=== PATIENT | male | born 1960 | race Caucasian/White ===

== ENCOUNTER 2017-09-30 18:45 | Inpatient (IN) ==
[2017-09-30] MEDS ORDERED: Aspirin 81 MG TAB.CHEW PO ONE (18:54)
[2017-09-30] MEDS ORDERED: *HR* Ticagrelor 90 MG TABLET PO ONE (18:58)
[2017-09-30] MEDS ORDERED: *HR* Heparin 5,000 UNIT/ML VIAL IVP PRN ×4 (19:07)
[2017-09-30] MEDS ORDERED: *HR* Heparin 5,000 UNIT/ML VIAL IVP ONE ×2 (19:07)
[2017-09-30 19:09] LABS: Basophils # 0.1 K/mcL (0.0-0.2); Basophils % 0.8 %; Eosinophils # 0.3 K/mcL (0.0-0.6); Hematocrit 45.1 % (37.5-50.1); Hemoglobin 15.6 g/dL (12.9-16.9); Immature Granulocytes % 0.2 % (0-4); Lymphocytes # 4.5 K/mcL (0.6-4.6); Lymphocytes % 45.2 %; Mean Corpuscular HGB Conc 34.6 g/dL (31.6-35.5); Mean Corpuscular Volume 89.7 fL (83.0-100.0); Mean Platelet Volume 9.1 fL (9.4-12.4); Monocytes # 0.9 K/mcL (0.0-1.3); Monocytes % 8.8 %; Neutrophils # 4.2 K/mcL (1.6-8.9); Platelet Count 261 K/mcL (140-400); Red Blood Count 5.03 M/mcL (4.19-5.50); Red Cell Distribution Width 12.7 % (11.5-14.5)
[2017-09-30] MEDS ORDERED: Nitroglycerin 0.4 MG TAB.SUBL SL PRN (19:10)
[2017-09-30] MEDS: Nitroglycerin 25 MG/250 ML INFUS..BTL IVC SCH ×2 (19:10→19:29)
[2017-09-30] MEDS ORDERED: 0.9 % Sodium Chloride 1,000 ML IVC ONE (19:11)
--- NOTE | 2017-09-30 19:11 | Emergency Department Note ---
Disposition Clinical Impression: ST elevation myocardial infarction (STEMI) Qualifiers: Involved coronary artery: unspecified coronary artery Qualified Code(s): I21.3 - ST elevation (STEMI) myocardial infarction of unspecified site Disposition: Admitted As Inpatient Condition: Fair Time of Disposition: 19:44 General Adult HPI - General Chief complaint: ED Chest Pain Stated complaint: C/P Time Seen by Provider: 09/30/17 18:51 Source: patient Mode of arrival: EMS Limitations: no limitations Nursing Notes Reviewed: Yes Vital Signs Reviewed: Yes - History of Present Illness HPI Narrative: Patient is a 56-year-old male with a past medical history of 6 cardiac stents presenting presents to the responded with complaint of chest pain is consistent with his prior heart attacks in the past. He states the symptoms started at 17: 00. Positive for nausea, SOB, and diaphoresis. Patient's EKG initially showed ST elevation inferior leads and lateral leads including V4 through V6 with reciprocal changes in lead aVL. STEMI alert was paged. Pain Scale: 7 - Related Data Home Medications Medication Instructions Recorded Confirmed Atorvastatin [Lipitor] 40 mg PO HS 09/30/17 09/30/17 Clopidogrel [Plavix] 75 mg PO DAILY 09/30/17 09/30/17 Metoprolol [Lopressor] 25 mg PO BID 09/30/17 09/30/17 Allergies Allergy/AdvReac Type Severity Reaction Status Date / Time No Known Allergies Allergy Verified 09/30/17 19:02 All systems ED: reviewed and negative except as stated. Review of Systems: As Per HPI Constitutional: Reports: other (diaphoresis). Denies: fever, chills Cardiovascular: Reports: chest pain Past Medical History - Past Medical History Attestation: Yes The following information was validated with the patient. Medical history: Reports: myocardial infarction Psychiatric history: Reports: no psych history - Social History Smoking Status: Never smoker Smokeless Tobacco Status: No Alcohol use: Reports: none Drug use: Reports: none Physical Exam CONSTITUTIONAL: ill-appearing; well-nourished; A&O X 3, vital signs are stable. HEAD: Normocephalic; atraumatic EYES: PERRL, no scleral icterus NOSE: The nose is normal in appearance without rhinorrhea NECK: No JVD or distended neck veins RESP: Normal chest excursion with respiration; breath sounds clear and equal bilaterally; no wheezes, rhonchi, or rales CARD: Regular rhythm, without murmurs, rub or gallop ABD: Non-distended; non-tender, soft, without rigidity, rebound or guarding,no pulsatile mass CHEST: No pain with palpation SKIN: Normal for age and race; warm and dry without diaphoresis ; no apparent lesions EXTREMITIES: Pulses are 2 plus and equal times 4 extremities, no peripheral edema or calf muscle pain - General Limitations: no limitations General appearance: alert Course Course Narrative: Dr. Crocker return the call at 19:10 discussed patient has signs of STEMI on EKG discussed that we have followed the protocol given the patient the pertinent medications will get him ready for catheter lab. STEMI alert was paged on patient's arrival prior to entering room. Patient was given sublingual nitroglycerin, his blood pressure was stable throughout the duration of the sublingual tablet. Patient had no change in his pain with the sublingual tablet. Plan was to start the patient on a low-dose nitroglycerin drip and titrated up to clinical improvement. Patient was also initiated with brillinta and a bolus of low-dose heparin. The patient was accepted to the catheter lab and his case was discussed with Dr. Crocker who is the receiving physician. Vital Signs Temperature 97.5 F L 09/30/17 18:53 Pulse Rate 87 09/30/17 18:53 Respiratory Rate 26 09/30/17 18:53 Blood Pressure 140/95 09/30/17 18:53 O2 Sat by Pulse Oximetry 100 09/30/17 18:53 Temperature 97.5 F L 09/30/17 18:53 Pulse Rate 77 09/30/17 19:25 Respiratory Rate 18 09/30/17 19:33 Blood Pressure 136/89 09/30/17 19:33 O2 Sat by Pulse Oximetry 100 09/30/17 19:19 Oxygen Delivery Oxygen Delivery Room Air Medical Decision Making - Medical Records Medical records reviewed: Yes I reviewed the patient's medical records. - Lab Data Lab results reviewed: Yes I reviewed the patient's lab results. Result diagrams: 09/30/17 18:58 09/30/17 18:58 Lab Results 09/30/17 09/30/17 09/30/17 Range/Units 18:58 18:58 18:58 WBC 10.0 (4.3-11.1) K/mcL RBC 5.03 (4.19-5.50) M/mcL Hgb 15.6 (12.9-16.9) g/dL Hct 45.1 (37.5-50.1) % MCV 89.7 (83.0-100.0) fL MCH 31.0 (28.0-33.3) pg MCHC 34.6 (31.6-35.5) g/dL RDW 12.7 (11.5-14.5) % Plt Count 261 (140-400) K/mcL MPV 9.1 L (9.4-12.4) fL Immature Gran % 0.2 (0-4) % Seg Neutrophils % 42.0 % Lymphocytes % 45.2 % Monocytes % 8.8 % Eosinophils % 3.0 % Basophils % 0.8 % Neutrophils # 4.2 (1.6-8.9) K/mcL Lymphocytes # 4.5 (0.6-4.6) K/mcL Monocytes # 0.9 (0.0-1.3) K/mcL Eosinophils # 0.3 (0.0-0.6) K/mcL Basophils # 0.1 (0.0-0.2) K/mcL PT 11.0 (9.4-12.1) Seconds INR 1.0 APTT 26.8 (26.0-36.0) Seconds Sodium 138 (136-145) mEq/L Potassium 3.4 L (3.5-5.1) mEq/L Chloride 103 (98-107) mEq/L Carbon Dioxide 23 (23-29) mEq/L BUN 17 (6-20) mg/dL Creatinine 1.07 (0.70-1.30) mg/dL Est GFR ( Amer) > 60 (> 60) Est GFR (Non-Af Amer) > 60 (> 60) BUN/Creatinine Ratio 16 (6-26) Glucose 151 H (70-105) mg/dL POC Glucose (58-89) Calculated Osmolality 290 (280-300) Calcium 9.6 (8.6-10.3) mg/dL Magnesium 1.9 (1.6-2.6) mg/dL Total Bilirubin 0.7 (0.3-1.0) mg/dL AST 19 (13-39) Units/L ALT 28 (7-52) Units/L Alkaline Phosphatase 70 (34-104) Units/L Troponin I (< 0.04) ng/mL Serum Total Protein 8.0 (6.4-8.9) g/dL Albumin 4.7 (3.5-5.7) g/dL Globulin 3.3 (2.4-3.5) g/dL Albumin/Globulin Ratio 1.4 (1.1-2.2) 09/30/17 09/30/17 Range/Units 18:58 19:12 WBC (4.3-11.1) K/mcL RBC (4.19-5.50) M/mcL Hgb (12.9-16.9) g/dL Hct (37.5-50.1) % MCV (83.0-100.0) fL MCH (28.0-33.3) pg MCHC (31.6-35.5) g/dL RDW (11.5-14.5) % Plt Count (140-400) K/mcL MPV (9.4-12.4) fL Immature Gran % (0-4) % Seg Neutrophils % % Lymphocytes % % Monocytes % % Eosinophils % % Basophils % % Neutrophils # (1.6-8.9) K/mcL Lymphocytes # (0.6-4.6) K/mcL Monocytes # (0.0-1.3) K/mcL Eosinophils # (0.0-0.6) K/mcL Basophils # (0.0-0.2) K/mcL PT (9.4-12.1) Seconds INR APTT (26.0-36.0) Seconds Sodium (136-145) mEq/L Potassium (3.5-5.1) mEq/L Chloride (98-107) mEq/L Carbon Dioxide (23-29) mEq/L BUN (6-20) mg/dL Creatinine (0.70-1.30) mg/dL Est GFR ( Amer) (> 60) Est GFR (Non-Af Amer) (> 60) BUN/Creatinine Ratio (6-26) Glucose (70-105) mg/dL POC Glucose 145 H (58-89) Calculated Osmolality (280-300) Calcium (8.6-10.3) mg/dL Magnesium (1.6-2.6) mg/dL Total Bilirubin (0.3-1.0) mg/dL AST (13-39) Units/L ALT (7-52) Units/L Alkaline Phosphatase (34-104) Units/L Troponin I < 0.03 (< 0.04) ng/mL Serum Total Protein (6.4-8.9) g/dL Albumin (3.5-5.7) g/dL Globulin (2.4-3.5) g/dL Albumin/Globulin Ratio (1.1-2.2) - Radiology Data Radiology results reviewed: Yes I reviewed the patient's radiology results. Chest X-Ray 09/30/17 18:54 IMPRESSION: Pulmonary vascular congestion. Mild degree of patchy left perihilar and right infrahilar airspace opacity which could reflect mild pulmonary edema, multifocal infiltrates and/or atelectasis. There may also be a trace left pleural effusion. Cardiomegaly. D/ / 09/30/2017 19:47:15 Jean Carlos Cantor MD / jesenia Interpreting Provider: Jean Carlos Cantor MD - EKG Data EKG #1 EKG attestation: Yes I reviewed and interpreted this EKG. EKG results narrative: The patient's EKG done at 18:50 shows sinus rhythm at a rate of 66 bpm. The patient has ST elevations in leads II, III, aVF, V4-V5 and has reciprocal ST depressions in aVL. Critical Care Time Critical Care Time: Yes Total Critical Care Time: 35 Attestation: Critical care performed: Time is exclusive of separately billable procedures. Time includes: direct patient care, patient reassessment, coordination of patient care, interpretation of data (laboratory data, radiology data, and respiratory data), review of patient's medical records, medical consultation and documentation of patient care. Procedures included in critical care time: Procedures excluded from critical care time: Attestation Statement - Attestation Attestation: I, Javy Navarro DO, examined this patient [id number] and my medical decision-making was reviewed with Dr. Jorge Pimentel, Resident Physician. I agree with the documented findings, disposition and treatment plan as described except to the extent set forth below. Please see my progress notes for details. 56-year-old male presented emergency room just prior to my arrival to shift. Patient presented with active chest pain diaphoresis and uncomfortable presentation. His had similar issues in the past myocardial infarction. EKG was collected showing what appears to be ST segment elevations in 23 aVF and lateral precordial leads V4 V5 and V6. Patient's vital signs were unstable to the course of the evaluation in the emergency room. Stimulator was contacted and called. Dr. Crocker was contacted directly by myself discussed case. Agree with activation to the catheterization lab at this time. Patient provided with heparin and [place] today here in the emergency room. Nitroglycerin drip was started secondary to inability to utilize the nitroglycerin tablets at this point. Patient is resting comfortably in the bed blood pressure is 150/90 systolic throughout the treatment course. Heart rate was in the 60s. Patient no acute signs of mental status change or deviation. We will continue to monitor in the emergency room until transportation 5 is completed. Physical exam is otherwise unremarkable. Lungs are clear heart is regular abdomen is soft. No pulsatile lesions on exam no neurologic deficits. Patient stable and good medical condition with what appears to be active myocardial infarction at the time of transfer to the catheterization lab less than 60 minutes after arrival. Medical intervention in place prior to transporting. See detailed documentation of physical exam, medical intervention, medical decision-making and disposition in the resident physician's note
[2017-09-30 19:13] LABS: Activated Partial Thrombo Time 26.8 Seconds (26.0-36.0)
[2017-09-30] MEDS ORDERED: Heparin 25,000 UNIT/500 ML D5W 25,000 UNIT/500 ML BAG IVC SCH ×2 (19:15)
[2017-09-30] MEDS ORDERED: Nitroglycerin 0.4 MG TAB.SUBL SL ONE (19:16)
[2017-09-30 19:18] LABS: Alanine Aminotransferase 28 Units/L (7-52); Albumin 4.7 g/dL (3.5-5.7); Albumin/Globulin Ratio 1.4 (1.1-2.2); Alkaline Phosphatase 70 Units/L (34-104); Aspartate Amino Transferase 19 Units/L (13-39); BUN/Creatinine Ratio 16 (6-26); Bilirubin,Total 0.7 mg/dL (0.3-1.0); Blood Urea Nitrogen 17 mg/dL (6-20); Calcium 9.6 mg/dL (8.6-10.3); Carbon Dioxide 23 mEq/L (23-29); Chloride 103 mEq/L (98-107); Globulin 3.3 g/dL (2.4-3.5); Glucose 151 mg/dL (70-105); Magnesium 1.9 mg/dL (1.6-2.6); Osmolality,Calculated 290 (280-300); Potassium 3.4 mEq/L (3.5-5.1); Sodium 138 mEq/L (136-145); eGFR For African Americans > 60 (> 60); eGFR For Non-African Americans > 60 (> 60)
[2017-09-30] MEDS ORDERED: Nitroglycerin 1,000 MCG/10 ML VIAL IV ONE (19:18)
[2017-09-30] MEDS ORDERED: 0.9 % Sodium Chloride 1,000 ML ONE ×2 (19:18→19:38)
[2017-09-30] MEDS ORDERED: Heparin 1,000 UNITS/500 mL 500 ML ONE (19:18)
[2017-09-30] MEDS ORDERED: *HR* Heparin 10,000 UNIT/10 ML VIAL ONE (19:18)
[2017-09-30] MEDS ORDERED: *HR* Atropine Sulfate 1 MG/10 ML SYRINGE ONE (19:37)
[2017-09-30] MEDS ORDERED: *HR* Midazolam HCl 2 MG/2 ML VIAL ONE (19:44)
--- NOTE | 2017-09-30 20:41 | Invasive Diagnostic Lab Proc ---
Name: Otilio March Date of Study: 09/30/2017 Date: 1960 Ht: 70.1in Medical Record#: [id number] Age: 56 Wt: 209.44lb Gender: Male BSA: 2.13 Order #: [id number] BMI: 29.98 Physicians Procedure Physician: Praful Crocker DO Referring MD: Referring MD: Staff Name Position Time In Shani Loyola RT (R) Scrub 07:43 PM Yomaira Doe RN Utility Repairer 07:43 PM Fifi Murillo RN Monitor 07:44 PM Indications Indication STEMI Procedures Performed Procedure PRQ CARD REVASC [place] 1 VSL Pre-Procedure Checklist Informed consent is complete signed and on chart. H&P is on chart. ID band is on and ID verified with patient. Patient NPO for procedure The procedure was described for the patient and questions were answered. ECG is on chart. Plan of Care Patient will tolerate the procedure without complications. Adequate level of comfort will be maintained. Hemodynamics will remain stable Patient will recover from procedure without complications. Respiratory function will be maintained. Cardiac rhythm will remain stable. Patient temperature will be maintained. Patient and/or family have verbalized understanding of the procedure. Patient Education Intravenous Access Time IV Size Location DC'd Fluid/Drip Rate Units RN 20g 1 1/4" Patent On Arrival Rt Antecubital 0.9NaCl 18g 1 1/4" Patent On Arrival Lt Antecubital Allergies No Known Allergies Vital Signs Time BP (mmHg) HR (bpm) O2 Sat. RR (bpm) LOC 07:48 PM / % 4 = Oriented but drowsy 08:06 PM / % 4 = Oriented but drowsy 07:42 PM 131 / 79 71 97 % 20 07:47 PM 131 / 78 79 99 % 22 07:52 PM 125 / 75 72 99 % 27 07:57 PM 124 / 80 74 100 % 24 08:00 PM 109 / 64 67 82 % 22 08:02 PM 119 / 63 66 99 % 20 08:07 PM 115 / 65 71 93 % 22 08:10 PM 94 / 51 70 97 % 14 08:12 PM 107 / 65 75 95 % 20 08:17 PM 101 / 61 75 99 % 22 Procedural Medications Time Medication Dose Units Method Given By 07:44 PM Oxygen 2 L/min nasal cannula Yomaira Doe RN 07:44 PM Versed 1 mg Intravenous Yomaira Doe RN 07:47 PM Lidocaine 2% 10 ml Subcutaneous Praful Crocker DO 07:54 PM Heparin 2000 units Intravenous Yomaira Doe RN 07:59 PM Nitroglycerin 100 mcg Intracoronary Praful Crocker DO 08:01 PM Dopamine 5 mcg/kg/min Intravenous Yomaira Doe RN 08:10 PM Dopamine 7.5 mcg/kg/min Intravenous Yomaira Doe RN 08:20 PM Dopamine 5 mcg/kg/min Intravenous Yomaira Doe RN ASA Classification: CLASS II- Mild systemic disease (i.e. well-controlled diabetes, hypertension, asthma, cigarette smoking) Emergent Procedure: ASA score is assumed Chad Score Preprocedure Postprocedure Activity 2- Moves 4 extremities sustained head lift Activity 2- Moves 4 extremities sustained head lift Circulation 2- SBP +/= 20 points of pre-anesthetic level Circulation 2- SBP +/= 20 points of pre-anesthetic level Consciousness 2- Awake and alert oriented x 3 Consciousness 2- Awake and alert oriented x 3 O2 Saturation 2- Able to maintain O2 satruation of 92% on room air O2 Saturation 2- Able to maintain O2 satruation of 92% on room air Respiratory 2- Able to deep breathe and cough well Respiratory 2- Able to deep breathe and cough well Total Score 10 Total Score 10 Contrast Agent: Isovue Diagnostic Contrast: 140 ml Total Contrast: 140 ml Fluoro Dose: 791 mGy Procedure Log Time Note Enter By 07:37 PM Pt arrived to director of labor relations 2 at 19:37 [facility] 07:41 PM CathStat 07:41 PM Vitals capture started with the following parameters, Patient=Adult, Interval=5 min, Initial Llumwjct=348 mmHg, Deflation Rate=5 mmHg, Cuff placed on Left Arm 07:42 PM HR=71 bpm, RRGD=915/79 mmhg, SpO2=97.0 %, Resp=20 B/min, Comment=SR 07:43 PM Patient charges- Angio tray pack, Navilyst 3mm J, Pulse Oximetry and ACIST tubing and [facility] 07:43 PM ASA Class CLASS II- Mild systemic disease (i.e. well-controlled diabetes, hypertension, asthma, cigarette smoking) [facility] 07:43 PM Meet and greet completed [facility] 07:43 PM Sign in performed according to hospital policy. brie 07:43 PM Procedure start 19:43 [email or web address] 07:43 PM Shani Loyola RT (R) Position: Scrub Time in: 19:43 [email or web address] 07:43 PM Yomaira Doe RN Position: Utility Repairer Time in: 19:43 brie 07:44 PM Fifi Murillo RN Position: Monitor Time in: 19:44 brie 07:44 PM Time: 19:44 Oxygen on at 2 L/min per nasal cannula by Yomaira Doe RN 07:44 PM Time: 19:44 Versed 1 mg Intravenous Given by Yomaira Doe RN 07:46 PM Pressure channel 1 zeroed. 07:47 PM HR=79 bpm, GPLV=721/78 mmhg, SpO2=99.0 %, Resp=22 B/min, Comment=SR 07:48 PM Time: 19:47 10 ml Lidocaine 2% to right groin Subcutaneous Given by DO sunitha Solomon 07:48 PM Micro-Introducer Kit utilized for sheath placement 07:48 PM Recorded ECG: HR=79 Condition=Condition 1 07:48 PM Access obtained by percutaneous puncture. 6Fr 10cm Terumo [place] sheath placed in right Femoral artery. [id number] [facility] 07:48 PM Time: 19:48 Patient comfortable and pain free: No mm 07:49 PM Time: 19:48LOC: 4 = Oriented but drowsy kalli 07:49 PM 5Fr FL 4 catheter inserted over the wire [facility] PM Recorded Pressure: Ao, HR=79, Condition=Condition 1 (Aorta) Ao 122/71/93 07:50 PM LCA angiography performed in multiple views. abraham 07:51 PM Coronary Dominance: Left oummabraham 07:[address] [facility] 07:51 PM 5Fr FR 4 catheter inserted over the wire [facility] 07[facility]52 PM Recorded Pressure: LV, HR=80, Condition=Condition 1 (Left Ventricle) LV 123/66/121 07:52 PM HR=72 bpm, XVAU=897/75 mmhg, SpO2=99.0 %, Resp=27 B/min, Comment=SR 07:52 PM Catheter selectively placed in left ventricle 07:52 PM Recorded Pressure: LV, Ao, HR=75, Condition=Condition 1 (Left Ventricle) LV 121/8/117, (Aorta) Ao 118/64/89 07:53 PM Catheter removed 07:53 PM Bolus angiogram of left Ventricle complete: 10 ml hand injection 07:53 PM 6Fr JL4 [place]-Tip guide catheter was used to cannulate the PCI vessel successfully. reused? No 07:54 PM Time: 19:54 Heparin 2000 units Intravenous Given by Yomaira Doe RN brie 07:55 PM .014 Choice Extra Support 300cm guide wire across target lesion- successful. reused? No 07:56 PM Recorded Pressure: Ao, HR=78, Condition=Condition 1 (Aorta) Ao 109/64/84 07:57 PM 3.5mm x 24mm Synergy drug-eluting stent across target lesion- successful Lot #[id number] [facility] 07:57 PM HR=74 bpm, PETW=534/80 mmhg, XnQ7=429.0 %, Resp=24 B/min, Comment=SR 07:58 PM Stent deployed @ 16 tip for 18 seconds 07:59 PM Stent delivery system removed intact. 07:59 PM Time: 19:59 Nitroglycerin 100 mcg Intracoronary Given by Praful [facility] PM NIBP STAT measurement started. 08:00 PM HR=67 bpm, NWDX=979/64 mmhg, SpO2=82.0 %, Resp=22 B/min, Comment=SR 08:01 PM Time: 20:01 Dopamine 5 mcg/kg/min Intravenous Given by Yomaira Doe RN [facility] 08:01 PM Recorded Pressure: Ao, HR=69, Condition=Condition 1 (Aorta) Ao 93/62/76 08:02 PM HR=66 bpm, TMIF=517/63 mmhg, SpO2=99.0 %, Resp=20 B/min, Comment=SR 08:02 PM Lesion found in Mid Circumflex. Pre Stenosis: 90 Pre SRAVANI Flow: 3: Complete and Brisk Flow/Perfusion ouabraham 08:02 PM Circumflex, Obtuse Marginal, Left Posterior Descending, and Left Posterolateral Coronary Arteries with 90 % stenosis. [facility] 08:04 PM 3.5mm x 12mm Synergy drug-eluting stent across target lesion- successful Lot #[id number] [facility] 08:05 PM Stent deployed @ 16 tip for 16 seconds [facility] 08:06 PM Stent delivery system removed intact. [facility] 08:06 PM Time: 20:06 Patient comfortable and pain free: No [facility] 08:06 PM Time: 20:06LOC: 4 = Oriented but drowsy [facility] 08:07 PM Recorded Pressure: Ao, HR=68, Condition=Condition 1 (Aorta) Ao 94/61/76 08:07 PM HR=71 bpm, BKAC=046/65 mmhg, SpO2=93.0 %, Resp=22 B/min, Comment=SR 08:07 PM 4.0 mm x 20mm NC Emerge balloon across target lesion- successful. reused? No [facility] 08:09 PM Balloon inflated @ 12 tip for 33 seconds [facility] 08:09 PM NIBP STAT measurement started. 08:10 PM HR=70 bpm, NIBP=94/51 mmhg, SpO2=97.0 %, Resp=14 B/min, Comment=SR 08:11 PM Time: 20:10 Dopamine 7.5 mcg/kg/min Intravenous Given by Yomaira Doe RN Mejia pump [facility] 08:12 PM Balloon inflated @ 16 tip for 11 seconds [facility] 08:12 PM HR=75 bpm, OUKG=313/65 mmhg, SpO2=95.0 %, Resp=20 B/min, Comment=SR 08:13 PM Balloon catheter removed intact. [facility] 08:14 PM Guide wire removed intact. [facility] 08:14 PM Guide catheter removed intact. [facility] 08:15 PM Bolus angiogram of right Femoral complete: 2 ml/sec for a total of 4 mls [facility] PM Procedure completed at 20:16 [facility] 08:16 PM Sign out completed: Radiation Dose 791.3 mGy Fluoro Time: 4.4 Isovue 370 - 200ml contrast 120 ml given by Praful Crocker DO. Complications: NoneCardiac Rehab Consult needed: YesConfirmed administered medications: Yes [facility] 08:17 PM HR=75 bpm, CVOP=221/61 mmhg, SpO2=99.0 %, Resp=22 B/min, Comment=SR 08:17 PM Isovue 370 - 200ml,1 Bottle(s) used. tsoumm 08:17 PM Arterial sheath pulled, Mynx closure device used and was Successful [id number] S/N. oumm 08:18 PM Estimated Blood Loss: minimal tsoummers 08:18 PM Post ECG NSR tsoummers 08:18 PM Post Blood [facility] 101[facility]61 [facility] 08:[facility] PM 20:18 Post Pulses Bilateral DP & PT 2+ [facility] 08:18 PM Information taught PCI, Cardiac Cath, and Mynx [facility] 08:18 PM Education needs Plan of Care and Responsibilities of Patient in Care [facility] 08:18 PM Learning barriers :None [facility] 08:18 PM Education Methods Verbal [facility] 08:18 PM Education evaluation Able to repeat information [facility] 08:18 PM Plavix, Effient or Brilinta given Yes in the ER [facility] 08:19 PM Complications: None [facility] 08:20 PM Time: 20:20 Dopamine 5 mcg/kg/min Intravenous Given by Yomaira Doe RN Mejia pump [facility] 08:25 PM Site status No bleeding/hematoma - Rt Groin as reported by Shani Loyola RT (R) at 20:25 ejohnson 08:25 PM Opsite applied ejohnson 08:36 PM Report given to Santos GARCIA Pt taken to ICU Room #3. 20:36 ejohnson 08:36 PM Delay to floor No ejohnson 08:36 PM Patient out of room: 20:36 ejohnson 08:36 PM Family placed in consult room. ejohnson Complications Complication None Hemodynamics Pressures Site Systolic/A Wave Diastolic/V Wave Mean AO 122 71 93 LV 123 66 121 LV 121 8 117 AO 118 64 89 AO 109 64 84 AO 93 62 76 AO 94 61 76 Post Procedure Information Blood Pressure: 101/61 mmHg Rhythm: NSR Post procedural instructions were given Closure Device Time Device Success/Fail 09/30/2017 8:17:00 PM MynxGrip Successful Site Checks Time Location Status Staff Sheath In? Note 08:25 PM Rt Groin No bleeding/hematoma Shani Loyola RT (R) Pulses Time Site Pre-Procedure Post-Procedure Note 8:18:00 PM Bilateral DP & PT 2+ Updated by Fifi Murillo RN on 09/30/2017 8:36:45 PM Fifi Murillo RN electronically signed on 09/30/2017 8:37:09 PM with status of Final
[2017-09-30] MEDS ORDERED: Acetaminophen 325 MG TABLET PO PRN (21:22)
[2017-09-30] MEDS ORDERED: 0.9 % Sodium Chloride 1,000 ML IVC SCH (21:30)
--- NOTE | 2017-09-30 21:34 | Cardiology History & Physical ---
Date of Encounter: 09/30/17 Time of Encounter: 19:30 Assessment and Plan (1) ST elevation myocardial infarction (STEMI) Current Visit: Yes Status: Acute The assessment and plan as outlined above was discussed with the patient and/or family members who expressed understanding and agreement. All questions were answered. Acute inf CA, discussed LHC/poss emergently, pt agrees to proceed, Qualifiers: Involved coronary artery: left circumflex coronary artery Qualified Code(s) : I21.21 - ST elevation (STEMI) myocardial infarction involving left circumflex coronary artery (2) Hypertension Current Visit: Yes Status: Chronic The assessment and plan as outlined above was discussed with the patient and/or family members who expressed understanding and agreement. All questions were answered. adequately controlled on current meds. Qualifiers: Hypertension type: essential hypertension Qualified Code(s): I10 - Essential (primary) hypertension (3) Hyperlipidemia Current Visit: Yes Status: Chronic The assessment and plan as outlined above was discussed with the patient and/or family members who expressed understanding and agreement. All questions were answered. continue statin tx, will check fasting lipid profile Qualifiers: Hyperlipidemia type: unspecified Qualified Code(s): E78.5 - Hyperlipidemia , unspecified (4) Obesity Current Visit: Yes Status: Chronic The assessment and plan as outlined above was discussed with the patient and/or family members who expressed understanding and agreement. All questions were answered. will discuss lifestyle changes, Qualifiers: Obesity type: unspecified obesity type Obesity classification: adult class 1 (BMI 30 - 34.9) Serious obesity comorbidity presence: with serious comorbidity Body mass index: BMI 34.0-34.9 Qualified Code(s): E66.9 - Obesity, unspecified; Z68.34 - Body mass index (BMI) 34.0-34.9, adult; Z68.34 - Body mass index (BMI) 34.0-34.9, adult History of Present Illness Chief complaint: chest pain HPI: Mr. March is a 56 year old male who presented to the ER with complaint if sudden onset mid sternal chest pain, occurred at rest, 8/10 at most severe, associated with nausea and diaphoresis, lasting approximately an hour and a half before he came to the ER. Chest pain is described as a squeezing sensation , with radiation into left arm. Chest pain improved from and 8 nadir a 5/10 after sl ntg and IV morphine, He was started on a loading dose of Brillinta, heparin bolus and nitroglycerin drip. Initial EKG consistent with ST segment elevation CA, discussed risks and benefits of emergency LHC/poss, pt agreed to proceed. STEMI alert was called. Pt reports chest pain similar to chest pain with radiation into left arm present with his first CA in 2010. He reports he had six stents placed in the artery in front of his heart at that time, He has followed up with Dr. Faulkner regularly. He is not very compliant with dietary caloric and sodium restrictions. Past Med Surg Social Fam HX - Past Medical History Source: patient Medical history: coronary artery disease, hypertension, myocardial infarction Psychiatric history: no psych history - Past Surgical History Surgical History: angioplasty/stent - Social History Smoking Status: Never smoker Smokeless Tobacco Status: No Alcohol use: none Drug use: none - Additional Family History Additional family history: No family hx CAD, stroke, DM, sudden . Medications and Allergies Atorvastatin [Lipitor] 40 mg PO HS 09/30/17 [History] Clopidogrel [Plavix] 75 mg PO DAILY 09/30/17 [History] Metoprolol [Lopressor] 25 mg PO BID 09/30/17 [History] 3 Allergy/AdvReac Type Severity Reaction Status Date / Time No Known Allergies Allergy Verified 09/30/17 19:02 All Systems Review: A 10-system review of systems was performed and is negative for pertinent findings except as documented above in the HPI. - Gastrointestinal Gastrointestinal: dysphagia Physical Examination Vital Signs, Last 4 Hours Temp Pulse Resp BP Pulse Ox 09/30/17 21:02 80 09/30/17 21:00 90 14 119/70 95 09/30/17 20:46 98.4 F 78 20 122/71 94 09/30/17 19:33 18 136/89 09/30/17 19:25 77 136/89 09/30/17 19:23 76 144/94 09/30/17 19:19 68 18 152/95 100 General: Conversant, Other (mild distress with ongoing chest pain.) HEENT: Atraumatic, Normocephaly, Mucus Membranes Moist Neck: No JVD, Normal carotid pulses Cardiac: Reg Rate and Rhythm, Normal S1 and S2, No Murmur Lungs: Normal Breath Sounds, No Wheeze, Rales, Rhonchi Neuro: Alert and responsive, No focal deficits noted Abdomen: Non-Tender Skin: No rashes noted on visualized skin Musculoskeletal: No Chest Wall Tenderness Extremities: No Clubbing, No Cyanosis, No Edema, Normal Pulses Results 09/30/17 18:58 09/30/17 18:58 - EKG Interpretation EKG results cardiology: personally reviewed (NSR with acute INf CA)
[2017-10-01 06:59] LABS: Basophils % 0.4 %; Eosinophils % 0.4 %; Hematocrit 39.2 % (37.5-50.1); Hemoglobin 13.4 g/dL (12.9-16.9); Immature Granulocytes % 0.4 % (0-4); Lymphocytes # 2.2 K/mcL (0.6-4.6); Lymphocytes % 19.4 %; Mean Corpuscular HGB Conc 34.2 g/dL (31.6-35.5); Mean Corpuscular Hemoglobin 30.7 pg (28.0-33.3); Mean Corpuscular Volume 89.7 fL (83.0-100.0); Mean Platelet Volume 9.2 fL (9.4-12.4); Monocytes % 9.2 %; Neutrophils # 7.8 K/mcL (1.6-8.9); Platelet Count 220 K/mcL (140-400); Red Blood Count 4.37 M/mcL (4.19-5.50); Red Cell Distribution Width 12.8 % (11.5-14.5); Segmented Neutrophils % 70.2 %
[2017-10-01 07:24] LABS: BUN/Creatinine Ratio 15 (6-26); Blood Urea Nitrogen 13 mg/dL (6-20); Calcium 8.5 mg/dL (8.6-10.3); Carbon Dioxide 22 mEq/L (23-29); Chloride 109 mEq/L (98-107); Glucose 156 mg/dL (70-105); Osmolality,Calculated 287 (280-300); Potassium 3.8 mEq/L (3.5-5.1); Sodium 137 mEq/L (136-145); eGFR For African Americans > 60 (> 60); eGFR For Non-African Americans > 60 (> 60)
--- NOTE | 2017-10-01 08:17 | Cardiology Progress Note ---
Date of Encounter: 10/01/17 Time of Encounter: 08:00 Assessment and Plan (1) ST elevation myocardial infarction (STEMI) Current Visit: Yes Status: Acute Inferior STEMI s/p successful PCI to LCx. Has been chest pain free overnight. No issues with right groin cath site. VSS. Cardiac rehab consulted. Check echocardiogram today. Transfer out of ICU to . Emphasized the importance of uninterrupted DAPT (asa + brilinta) for at least 1 year. Post PCI restrictions discussed. Continue betablocker and statin. Added Heparin SC Q12H for VTE prophylaxis. Plan for possible discharge home tomorrow if stable. Qualifiers: Involved coronary artery: left circumflex coronary artery Qualified Code(s) : I21.21 - ST elevation (STEMI) myocardial infarction involving left circumflex coronary artery (2) Hyperlipidemia Current Visit: Yes Status: Chronic Continue statin. Check fasting LP in AM. AST/ALT normal. Qualifiers: Hyperlipidemia type: unspecified Qualified Code(s): E78.5 - Hyperlipidemia , unspecified (3) Hypertension Current Visit: Yes Status: Chronic Controlled on outpatient medications. Continue to monitor and adjust medications accordingly. Qualifiers: Hypertension type: essential hypertension Qualified Code(s): I10 - Essential (primary) hypertension (4) Obesity Current Visit: Yes Status: Chronic Lifestyle modifications including heart healthy diet and daily exercise Qualifiers: Obesity type: unspecified obesity type Obesity classification: adult class 1 (BMI 30 - 34.9) Serious obesity comorbidity presence: with serious comorbidity Body mass index: BMI 34.0-34.9 Qualified Code(s): E66.9 - Obesity, unspecified; Z68.34 - Body mass index (BMI) 34.0-34.9, adult; Z68.34 - Body mass index (BMI) 34.0-34.9, adult Discussion w patient/family: The assessment and plan as outlined above was discussed with the patient and/or family members who expressed understanding and agreement. All questions were answered. Thank you for involving us in the care of your patient. Please call with any questions. The patient will be discussed and reviewed with Dr. Crocker; changes to be made accordingly. Subjective Principal diagnosis: Inferior STEMI Interval history: Seen and examined earlier this AM. Patient reports has been chest pain free since PCI yesterday evening. No reported events overnight. No issues with right groin cath site. Objective Vital Signs, Last 4 Hours Temp Pulse Resp BP Pulse Ox 10/01/17 07:55 98.8 F 10/01/17 06:00 87 19 119/84 98 10/01/17 05:00 70 16 115/72 99 10/01/17 04:52 98.6 F General: Conversant, No Apparent Distress HEENT: Atraumatic, Normocephaly, Mucus Membranes Moist Cardiac: Reg Rate and Rhythm, Normal S1 and S2 Lungs: Normal Breath Sounds, No Wheeze, Rales, Rhonchi Neuro: Alert and responsive, No focal deficits noted Abdomen: Soft Skin: No rashes noted on visualized skin Musculoskeletal: No Chest Wall Tenderness Extremities: No Edema, Normal Pulses Other: right groin: dressing C/D/I. No hematoma, bleeding, or oozing. DP/PT pulses +2 Results 10/01/17 06:40 10/01/17 06:40 Lab Results 10/01/17 12 06:40 06:40 WBC 11.2 H Hgb 13.4 D Hct 39.2 Plt Count 220 Sodium 137 Potassium 3.8 Chloride 109 H Carbon Dioxide 22 L BUN 13 Creatinine 0.85 Glucose 156 H Calcium 8.5 L Active Medications Acetaminophen (Tylenol) 650 mg PO Q6HR PRN PRN Reason: Mild Pain Stop: 04/01/18 21:23 Aspirin (Aspirin) 81 mg PO DAILY [facility] Stop: 04/02/18 09:01 Atorvastatin Calcium (Lipitor) 40 mg PO HS [facility] Stop: 04/02/18 21:01 Heparin Sodium (Porcine) (Heparin) 4,000 unit IVP Q6HR PRN PRN Reason: SEE COMMENTS Stop: 04/01/18 19:08 Heparin Sodium (Porcine) (Heparin) 2,000 unit IVP Q6H PRN PRN Reason: SEE COMMENTS Stop: 04/01/18 19:08 Nitroglycerin (Nitroglycerin Premix 25 Mg/250 Ml) 25 mg in 250 mls @ 3 mls/hr IVC .Q24H GRETEL PRN Reason: 5 MCG/MIN Stop: 04/01/18 19:01 Last Admin: 09/30/17 19:29 Dose: 50 mcg/min, 30 mls/hr Heparin Sodium/Dextrose (Heparin 25,000 Unit/500 Ml D5w) 25,000 unit in 500 mls @ 19.984 mls/hr IVC .Q24H GRETEL; 10.44 UNIT/KG/HR PRN Reason: Protocol Stop: 04/01/18 19:16 Last Admin: 09/30/17 21:21 Dose: Not Given Sodium Chloride (0.9 % Sodium Chloride) 1,000 mls @ 100 mls/hr IVC .Q10H GRETEL Stop: 04/01/18 21:31 Last Admin: 09/30/17 21:41 Dose: 100 mls/hr Metoprolol Tartrate (Lopressor) 25 mg PO BID [facility] Stop: 04/02/18 09:01 Nitroglycerin (Nitroglycerin) 0.4 mg SL Q5MIN PRN PRN Reason: Chest Pain Stop: 04/01/18 19:11 Last Admin: 09/30/17 19:20 Dose: 0.4 mg Ticagrelor (Brilinta) 90 mg PO BID [facility] Stop: 04/02/18 09:01 - Imaging and Cardiology Echo: pending Cardiac cath: report reviewed Other Results: 12 hour tele: avg HR=75 SR. - EKG Interpretation EKG results cardiology: personally reviewed Consult Discharge Plan - Plan Referrals: Denilson Thompson MD [Primary Care Provider] -
[2017-10-01] MEDS ORDERED: Nitroglycerin 0.4 MG TAB.SUBL SL PRN (08:41)
[2017-10-01] MEDS ORDERED: Acetaminophen 325 MG TABLET PO PRN (08:41)
[2017-10-01] MEDS: *HR* Heparin 5,000 UNIT/ML VIAL SQ SCH ×2 (08:55→18:11)
[2017-10-01] MEDS: *HR* Ticagrelor 90 MG TABLET PO SCH ×2 (08:55→20:33)
[2017-10-01] MEDS: Aspirin 81 MG TAB.CHEW PO SCH (08:55)
[2017-10-01] MEDS ORDERED: *HR* Ticagrelor 90 MG TABLET PO SCH (09:00)
[2017-10-01] MEDS ORDERED: Aspirin 81 MG TAB.CHEW PO SCH (09:00)
[2017-10-02 04:36] LABS: Basophils # 0.1 K/mcL (0.0-0.2); Basophils % 0.5 %; Eosinophils # 0.2 K/mcL (0.0-0.6); Eosinophils % 2.1 %; Hematocrit 41.7 % (37.5-50.1); Hemoglobin 14.2 g/dL (12.9-16.9); Immature Granulocytes % 0.1 % (0-4); Lymphocytes # 2.6 K/mcL (0.6-4.6); Lymphocytes % 28.2 %; Mean Corpuscular HGB Conc 34.1 g/dL (31.6-35.5); Mean Corpuscular Hemoglobin 30.7 pg (28.0-33.3); Mean Corpuscular Volume 90.1 fL (83.0-100.0); Mean Platelet Volume 9.5 fL (9.4-12.4); Monocytes % 10.8 %; Neutrophils # 5.4 K/mcL (1.6-8.9); Platelet Count 197 K/mcL (140-400); Red Blood Count 4.63 M/mcL (4.19-5.50); Red Cell Distribution Width 13.1 % (11.5-14.5); Segmented Neutrophils % 58.3 %
[2017-10-02] MEDS: *HR* Heparin 5,000 UNIT/ML VIAL SQ SCH (05:05)
[2017-10-02 06:36] VITALS: BP 113/67
[2017-10-02 06:53] LABS: BUN/Creatinine Ratio 14 (6-26); Blood Urea Nitrogen 13 mg/dL (6-20); Calcium 8.8 mg/dL (8.6-10.3); Carbon Dioxide 24 mEq/L (23-29); Chloride 108 mEq/L (98-107); Chol/HDL Ratio 3.2 (0-4.9); Cholesterol 132 mg/dL (< 200); Glucose 124 mg/dL (70-105); HDL Cholesterol 41 mg/dL (40-59); LDL Cholesterol,Calculated 59 mg/dL (0-99); Osmolality,Calculated 288 (280-300); Potassium 3.9 mEq/L (3.5-5.1); Sodium 138 mEq/L (136-145); Triglycerides 159 mg/dL (< 150); eGFR For African Americans > 60 (> 60); eGFR For Non-African Americans > 60 (> 60)
[2017-10-02] MEDS: *HR* Ticagrelor 90 MG TABLET PO SCH (08:40)
[2017-10-02] MEDS: Aspirin 81 MG TAB.CHEW PO SCH (08:40)
--- NOTE | 2017-10-02 08:56 | Discharge Summary ---
Date of Encounter: 10/02/17 Time of Encounter: 08:30 - Discharge Diagnosis (1) ST elevation myocardial infarction (STEMI) Priority: Primary Status: Acute Comments: s/p successful PCI to LCx. Has been chest pain free since PCI. Qualifiers: Involved coronary artery: left circumflex coronary artery Qualified Code(s) : I21.21 - ST elevation (STEMI) myocardial infarction involving left circumflex coronary artery (2) Hyperlipidemia Priority: Secondary Status: Chronic Qualifiers: Hyperlipidemia type: mixed hyperlipidemia Qualified Code(s): E78.2 - Mixed hyperlipidemia (3) Hypertension Priority: Secondary Status: Chronic Qualifiers: Hypertension type: essential hypertension Qualified Code(s): I10 - Essential (primary) hypertension (4) Obesity Priority: Secondary Status: Chronic Qualifiers: Obesity type: unspecified obesity type Obesity classification: adult class 1 (BMI 30 - 34.9) Serious obesity comorbidity presence: with serious comorbidity Body mass index: BMI 34.0-34.9 Qualified Code(s): E66.9 - Obesity, unspecified; Z68.34 - Body mass index (BMI) 34.0-34.9, adult; Z68.34 - Body mass index (BMI) 34.0-34.9, adult - Discharge Medications Prescriptions: Nitroglycerin 0.4 mg SL Q5MIN PRN #30 tab.subl PRN Reason: Chest Pain Aspirin 81 mg PO DAILY #30 tab.chew Lisinopril [Zestril] 5 mg PO DAILY #30 tablet Ticagrelor [Brilinta] 90 mg PO BID #60 tablet Home Medications: Atorvastatin [Lipitor] 40 mg PO HS 09/30/17 [History] Metoprolol [Lopressor] 25 mg PO BID 09/30/17 [History] Aspirin 81 mg PO DAILY #30 tab.chew 10/02/17 [Rx] Lisinopril [Zestril] 5 mg PO DAILY #30 tablet 10/02/17 [Rx] Nitroglycerin 0.4 mg SL Q5MIN PRN #30 tab.subl 10/02/17 [Rx] Ticagrelor [Brilinta] 90 mg PO BID #60 tablet 10/02/17 [Rx] Allergies/Adverse Reactions: 3 Allergy/AdvReac Type Severity Reaction Status Date / Time No Known Allergies Allergy Verified 09/30/17 19:02 Procedures/tests Complete & Pending: Procedures Performed prior 72 hours Category Date Time Status EV echocardiogram Routine Y 10/01/17 07:25 Completed Date of admission: 09/30/17 19:17 Primary care physician: Denilson Thompson MD Consults: 10/01/17 07:25 Consult to Cardiac Rehabilitation-Phase1 [CONS] Routine Comment: Reason for Consult: STEMI, PCI Call Completed: No Discharging clinician: Tricia Soto Anticipated date of discharge: 10/02/17 - Patient Status Disposition: Home, Self-Care Condition: Good Functional capacity at discharge: independent ambulation Overall status at discharge: patient is progressing back to baseline - Discharge Instructions Instructions: Left Heart Catheterization (DC), Coronary Intravascular Stent Placement (DC) Follow Up With: Jose Raul Faulkner DO [Partnered Physician] - (5-7 days. [facility] will call with appt date/time on Tuesday) Denilson Thompson MD [Primary Care Provider] - (Please follow-up with PCP within 1 week) Additional Instructions: RISK FACTORS: STOP SMOKING: If you smoke, STOP. Smoking or tobacco use significantly increases your risk of heart disease because nicotine causes the arteries to narrow or constrict. It also causes fats to stick to the artery. Your chances of having a heart attack are greatly increased if you continue to smoke. For more information, call the education line for smoking cessation 1-808-AWQDFBE EAT A LOW FAT/CHOLESTEROL/SODIUM DIET: This diet may help reduce your chances of having a heart attack. LIFTING: Avoid lifting anything more than 10 pounds for 5-7 days Prior to straining, laughing, sneezing and/or coughing, apply manual pressure directly over insertion site. ACTIVITY: You may walk or climb stairs as tolerated You can resume sexual activity as tolerated In general, you are encouraged to engage in a minimum of 30 minutes or more of moderate intensity physical activity, such as brisk walking, daily or at least 3 -4 times weekly BATHING Do not submerge the site into water (bath tub, hot tub, swimming pool) for 1 week. This can be a source for infection into the blood stream. You may shower after 24 hours SITE CARE: After 24 hours, you may remove the dressing and leave the site open to air. Keep the site clean and dry. Clean gently and pat dry. You can expect bruising and tenderness that gradually resolve within a week or two. Return to work as instructed per your physician Resume driving as instructed per physician Keep all scheduled follow up appointments Resume medications as instructed IMPORTANT: If prescribed a Platelet Aggregation Inhibitor such as, Plavix, Brilinta or Effient: Duration of therapy is minimum one year These medications are often used in combination with Aspirin in prevention of future heart attacks Never discontinue unless consult with your Motor Tune Up Specialist STROKE (CVA) Risk factors for a stroke are: Age, cigarette smoking, diabetes, excessive alcohol consumption, family history, high blood pressure, overweight, physical inactivity, prior stroke, heart attack, diagnosis of carotid artery stenosis or other artery disease. Warning signs: Sudden numbness or weakness of the face, arm or leg; especially on one side of the body, sudden confusion, trouble speaking or understanding, sudden trouble seeing in one or both eyes, sudden trouble walking, dizziness, loss of balance or coordination, sudden severe headache with no cause. Call 911 or go to the Emergency Room. CONGESTIVE HEART FAILURE: If you have been diagnosed with Congestive Heart Failure (CHF) and your symptoms return, make an appointment with your physician Weigh yourself daily. Notify your physician if you have a weight gain of two or more pounds in one day or five or more pounds in one week. If you experience any difficulty breathing, please call 911 BLEEDING: Although the risk of bleeding is minimal, it can happen. If you have any bleeding from the site, apply firm pressure above the puncture site for 10-15 minutes. If the bleeding does not stop, continue manual pressure and call 911 Contact your physician if: You develop a fever greater than 101 degrees Fahrenheit Your site becomes reddened or has any drainage You have an increase in pain or burning at the site or if a large knot forms at the site. If you experience chest pain, shortness of breath, dizziness, or extreme tiredness, stop the activity and rest. Please notify your physicians office if you experience any of these symptoms and they are not relieved by rest please call 911! - Diet and Activity Activity: increase activity as tolerated (per post PCI discharge instructions. Avoid strenuous exertion/activity until seen by Cardiology. ), return to work once cleared by your PCP/specialist Diet: low fat, low cholesterol, low salt diet, other (no concentrated sweets. ) - Hospital Course Hospital course: Mr. March is a 56 year old male who presented to [facility] on 09/30/17 with severe chest burning; was found to have acute inferior STEMI. He was emergently taken to the laboratory technologist s/p x2 ROCHELLE to mLCX. He was transferred to ICU for observation. Patient was stepped down out of ICU on 10/01/17. He has been ambulating in room and hallways without chest pain or discomfort. Vital signs, labs, and telemetry have been stable. Echocardiogram completed and demonstrated mildly reduced LVEF, 45% with segmental wall motion abnormalities. Blood glucose was noted to be mildly elevated during stay. He was instructed to adhere to low carb/no concentrated sweet diet. Weight loss and daily exercise recommended. Recommend follow-up with PCP within 1 week for further evaluation of diabetes. Mr. March is being prepped for discharge to home in stable condition. ACEi was added to home medications for mildly reduced LVEF. Plavix was stopped and he was started on Brilinta 90 mg BID--saving card for 30-day supply provided at discharge. Emphasized the importance of uninterrupted DAPT (asa + brilinta) for at least 1 year. He will continue statin and betablocker. He was provided with prn NTG tabs upon discharge. Post PCI discharge instructions discussed including care of right groin cath site and limitations. He will follow-up with PCP and Cardiology within 1 week. Patient voiced understanding of all information provided and agrees with plan. Patient was discussed and reviewed with Dr. Crocker. - Time Spent with Patient Total time spent providing and/or coordinating discharge services: 30 minutes Less than 30 minutes Specific discharge activities: per Post PCI discharge instructions--please provide written copy. No heavy lifting >5 pounds for 1 week. Keep right groin cath site clean and dry. Avoid strenuous activity or exertion until seen by Cardiology. Follow-up with PCP in 1 week Physical Examination Vital Signs, Last 4 Hours Temp Pulse Resp BP Pulse Ox 10/02/17 06:33 98.1 F 74 16 113/67 94 General: Conversant, No Apparent Distress HEENT: Atraumatic, Normocephaly, Mucus Membranes Moist Cardiac: Reg Rate and Rhythm, Normal S1 and S2 Lungs: Normal Breath Sounds Neuro: Alert and responsive Abdomen: Soft Skin: No rashes noted on visualized skin Musculoskeletal: No Chest Wall Tenderness Extremities: No Edema, Normal Pulses
--- NOTE | 2017-10-04 11:30 | Electrocardiograph Report ---
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
--- NOTE | 2017-10-04 13:56 | Electrocardiograph Report ---
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
== END 2017-10-02 13:00 | disposition home or self-care (01) | DRG 247 ==
LOC: EMEROO 18:45 → ICNU 19:17 → 2NENU 10-01 14:24
PROVIDERS: ADMIT Internal Medicine Cardiovascular Disease; ATTEND Internal Medicine Cardiovascular Disease

== ENCOUNTER 2020-07-22 02:27 | Observation (INO) ==
[2020-07-22] MEDS ORDERED: Aspirin 81 MG TAB.CHEW PO ONE (02:45)
[2020-07-22 03:06] LABS: INR 1.1; Prothrombin Time 12.3 Seconds (9.4-12.1)
[2020-07-22 03:07] LABS: Basophils # 0.1 K/mcL (0.0-0.2); Basophils % 0.9 %; Eosinophils # 0.2 K/mcL (0.0-0.6); Eosinophils % 2.4 %; Hemoglobin 13.8 g/dL (12.9-16.9); Immature Granulocytes % 0.2 % (0-4); Lymphocytes # 2.4 K/mcL (0.6-4.6); Lymphocytes % 27.8 %; Mean Corpuscular HGB Conc 32.9 g/dL (31.6-35.5); Mean Corpuscular Hemoglobin 30.3 pg (28.0-33.3); Mean Corpuscular Volume 92.1 fL (83.0-100.0); Mean Platelet Volume 9.5 fL (9.4-12.4); Monocytes # 0.9 K/mcL (0.0-1.3); Neutrophils # 5.2 K/mcL (1.6-8.9); Platelet Count 251 K/mcL (140-400); Red Blood Count 4.56 M/mcL (4.19-5.50); Red Cell Distribution Width 12.7 % (11.5-14.5); Segmented Neutrophils % 58.7 %; White Blood Count 8.8 K/mcL (4.3-11.1)
[2020-07-22] MEDS: Nitroglycerin 0.4 MG TAB.SUBL SL PRN ×2 (03:07→03:13)
[2020-07-22 03:09] LABS: Activated Partial Thrombo Time 27.7 Seconds (26.0-36.0)
[2020-07-22] MEDS ORDERED: GI Cocktail 40 ML EACH PO ONE (03:20)
[2020-07-22 03:23] LABS: Albumin 4.2 g/dL (3.5-5.7); Albumin/Globulin Ratio 1.3 (1.1-2.2); Bilirubin,Direct 0.2 mg/dL (0.0-0.2); Bilirubin,Indirect 0.5 mg/dL (0.0-1.0); Bilirubin,Total 0.7 mg/dL (0.3-1.0); Globulin 3.2 g/dL (2.4-3.5); Total Protein 7.4 g/dL (6.4-8.9)
[2020-07-22 03:26] LABS: BUN/Creatinine Ratio 18 (6-26); Blood Urea Nitrogen 19 mg/dL (6-20); Calcium 9.3 mg/dL (8.6-10.3); Carbon Dioxide 25 mEq/L (23-29); Chloride 102 mEq/L (98-107); Glucose 166 mg/dL (70-105); Osmolality,Calculated 294 (280-300); Potassium 3.7 mEq/L (3.5-5.1); Sodium 139 mEq/L (136-145); Troponin I < 0.03 ng/mL (< 0.04); eGFR For African Americans > 60 (> 60); eGFR For Non-African Americans > 60 (> 60)
[2020-07-22] MEDS ORDERED: Ondansetron 4 MG/2 ML VIAL IVP PRN (07:36)
[2020-07-22] MEDS ORDERED: Naloxone 0.4 MG/ML INJ IVP PRN (07:36)
[2020-07-22] MEDS ORDERED: *HR* HYDROcodone/Acet 5/325 mg TABLET PO PRN (07:36)
[2020-07-22] MEDS ORDERED: Perflutren Lipid Microsphere 1.3 ML in 0.9 % Sodium Chloride 8.7 ML IVP PRN (07:39)
[2020-07-22] MEDS ORDERED: TICAGRELOR 60 MG PO SCH (09:00)
[2020-07-22] MEDS: TICAGRELOR 60 MG PO SCH ×2 (15:06→20:36)
[2020-07-23 00:09] LABS: Amphetamine Screen,Urine Negative ng/mL (Cutoff=1000); Barbiturate Screen,Urine Negative ng/mL (Cutoff=200); Benzodiazepines Screen,Urine Negative ng/mL (Cutoff=200); Cannabinoid Screen,Urine Negative ng/mL (Cutoff = 50); Cocaine Screen,Urine Negative ng/mL (Cutoff= 300); Opiate Screen,Urine Negative ng/mL (Cutoff=300); Phencyclidine Screen,Urine Negative ng/mL (Cutoff=25)
[2020-07-23 02:31] LABS: Basophils # 0.1 K/mcL (0.0-0.2); Basophils % 0.7 %; Eosinophils # 0.4 K/mcL (0.0-0.6); Eosinophils % 4.3 %; Hematocrit 41.9 % (37.5-50.1); Immature Granulocytes % 0.2 % (0-4); Lymphocytes # 2.6 K/mcL (0.6-4.6); Lymphocytes % 30.1 %; Mean Corpuscular HGB Conc 33.4 g/dL (31.6-35.5); Mean Corpuscular Hemoglobin 31.1 pg (28.0-33.3); Mean Corpuscular Volume 93.1 fL (83.0-100.0); Mean Platelet Volume 9.6 fL (9.4-12.4); Monocytes # 0.6 K/mcL (0.0-1.3); Monocytes % 6.9 %; Platelet Count 231 K/mcL (140-400); Red Cell Distribution Width 12.8 % (11.5-14.5); Segmented Neutrophils % 57.8 %; White Blood Count 8.7 K/mcL (4.3-11.1)
[2020-07-23 02:39] LABS: Estimated Average Glucose 154 mg/dl
[2020-07-23 02:51] LABS: BUN/Creatinine Ratio 20 (6-26); Blood Urea Nitrogen 18 mg/dL (6-20); Calcium 9.1 mg/dL (8.6-10.3); Carbon Dioxide 25 mEq/L (23-29); Chloride 105 mEq/L (98-107); Chol/HDL Ratio 2.5 (0-4.9); Cholesterol 101 mg/dL (< 200); Glucose 124 mg/dL (70-105); HDL Cholesterol 40 mg/dL (40-59); LDL Cholesterol,Calculated 35 mg/dL (< 100); Osmolality,Calculated 291 (280-300); Phosphorous 3.3 mg/dL (2.7-4.5); Sodium 139 mEq/L (136-145); Triglycerides 129 mg/dL (< 150); eGFR For African Americans > 60 (> 60); eGFR For Non-African Americans > 60 (> 60)
[2020-07-23] MEDS ORDERED: *HR* Enoxaparin 40 MG/0.4 ML SYRINGE SQ SCH (06:00)
[2020-07-23] MEDS ORDERED: Aspirin 81 MG TAB.CHEW PO SCH (09:00)
[2020-07-23] MEDS: TICAGRELOR 60 MG PO SCH (09:05)
[2020-07-23 10:50] VITALS: BP 138/80
[2020-07-23] MEDS ORDERED: Nitroglycerin 0.4 MG TAB.SUBL SL PRN (12:14)
[2020-07-24] MEDS ORDERED: lisinopriL 5 MG TABLET PO SCH (09:00)
[2020-07-24] MEDS ORDERED: Metoprolol XL (24 HR) Succ 25 MG TAB.ER.24H PO SCH (09:00)
== END 2020-07-23 15:32 | disposition home or self-care (01) ==
LOC: EMEROOARM 02:27 → 3BNU 02:27 → SUATTDRO 04:30 → 3ANU 04:36 → 3NENU 04:50
PROVIDERS: ADMIT Family Medicine; ATTEND Family Medicine

== ENCOUNTER 2020-07-24 07:21 | Inpatient (IN) ==
[2020-07-24] MEDS ORDERED: Ondansetron 4 MG/2 ML VIAL IVP ONE (07:42)
[2020-07-24] MEDS ORDERED: 0.9 % Sodium Chloride 1,000 ML IVC ONE (07:42)
[2020-07-24] MEDS ORDERED: *HR* FentaNYL (PF) 100 MCG/2 ML VIAL IVP ONE (07:44)
[2020-07-24 07:57] LABS: Basophils % 0.1 %; Hematocrit 44.9 % (37.5-50.1); Hemoglobin 14.8 g/dL (12.9-16.9); Immature Granulocytes % 0.4 % (0-4); Lymphocytes % 6.2 %; Mean Corpuscular Hemoglobin 30.1 pg (28.0-33.3); Mean Corpuscular Volume 91.4 fL (83.0-100.0); Mean Platelet Volume 9.4 fL (9.4-12.4); Monocytes # 1.2 K/mcL (0.0-1.3); Monocytes % 6.9 %; Neutrophils # 14.5 K/mcL (1.6-8.9); Platelet Count 261 K/mcL (140-400); Red Blood Count 4.91 M/mcL (4.19-5.50); Red Cell Distribution Width 12.8 % (11.5-14.5); Segmented Neutrophils % 86.4 %
[2020-07-24 07:59] LABS: Amorphous Sediment,Urine Few per hpf (None-Few); Bacteria,Urine Few per hpf (None-Few); Bilirubin,Urine Negative (Negative); Blood,Urine Small (Negative); Clarity,Urine Turbid (Clear); Color,Urine Light-Yellow (Yellow); Glucose,Urine (UA) 30 mg/dL (Normal); Ketones,Urine 10 mg/dL (Negative); Leukocyte Esterase,Urine Negative (Negative); Mucus,Urine Few per lpf (None-Few); Nitrite,Urine Negative (Negative); Protein,Urine 30 mg/dL (Neg-Trace); RBC,Urine 30-50 per hpf (0-3); Specific Gravity,Urine 1.023 (1.010-1.025); Urobilinogen,Urine Normal (Normal); WBC,Urine 0-3 per hpf (0-3)
[2020-07-24 08:01] LABS: INR 1.2; Prothrombin Time 13.4 Seconds (9.4-12.1); White Blood Count 16.8 K/mcL (4.3-11.1)
[2020-07-24 08:03] LABS: Activated Partial Thrombo Time 27.7 Seconds (26.0-36.0)
[2020-07-24 08:09] LABS: Alanine Aminotransferase 20 Units/L (7-52); Albumin 4.6 g/dL (3.5-5.7); Albumin/Globulin Ratio 1.3 (1.1-2.2); Alkaline Phosphatase 68 Units/L (34-104); Aspartate Amino Transferase 18 Units/L (13-39); BUN/Creatinine Ratio 21 (6-26); Bilirubin,Direct 0.2 mg/dL (0.0-0.2); Bilirubin,Total 1.2 mg/dL (0.3-1.0); Blood Urea Nitrogen 20 mg/dL (6-20); Calcium 9.7 mg/dL (8.6-10.3); Carbon Dioxide 25 mEq/L (23-29); Chloride 100 mEq/L (98-107); Globulin 3.6 g/dL (2.4-3.5); Glucose 185 mg/dL (70-105); Lipase 71 Units/L (11-82); Osmolality,Calculated 289 (280-300); Potassium 3.9 mEq/L (3.5-5.1); Sodium 136 mEq/L (136-145); Total Protein 8.2 g/dL (6.4-8.9); eGFR For African Americans > 60 (> 60); eGFR For Non-African Americans > 60 (> 60)
[2020-07-24] MEDS ORDERED: Isovue-370 500 ML BOTTLE IVP ONE (08:48)
[2020-07-24 08:53] LABS: Troponin I < 0.03 ng/mL (< 0.04)
[2020-07-24] MEDS ORDERED: Piperacillin/Tazobactam 3.375 GM in 0.9 % Sodium Chloride Mini Bag 100 ML IVPB ONE (10:27)
[2020-07-24] MEDS ORDERED: Ondansetron 4 MG/2 ML VIAL IVP PRN (10:41)
[2020-07-24] MEDS ORDERED: Naloxone 0.4 MG/ML INJ IVP PRN (10:41)
[2020-07-24] MEDS ORDERED: 0.9 % Sodium Chloride 1,000 ML IVC SCH (10:45)
[2020-07-24] MEDS ORDERED: *HR* Labetalol 20 MG/4 ML SYRINGE IVP PRN (12:27)
[2020-07-24] MEDS ORDERED: Morphine Sulfate 2 MG/ML SYRINGE IVP ONE (12:45)
[2020-07-24] MEDS ORDERED: Morphine Sulfate 2 MG/ML SYRINGE ONE (12:59)
[2020-07-24 14:23] LABS: Adenovirus Not Detected (Not Detect); Bordetella Pertussis Not Detected (Not Detect); Chlamydophila pneumoniae Not Detected (Not Detect); Coronavirus 229E Not Detected (Not Detect); Coronavirus HKU1 Not Detected (Not Detect); Coronavirus NL63 Not Detected (Not Detect); Coronavirus OC43 Not Detected (Not Detect); Human Metapneumovirus Not Detected (Not Detect); Human Rhinovirus/Enterovirus Not Detected (Not Detect); Influenza A Subtype 2009 H1 Not Detected (Not Detect); Influenza B Not Detected (Not Detect); Mycoplasma pneumoniae Not Detected (Not Detect); Parainfluenza Virus 1 Not Detected (Not Detect); Parainfluenza Virus 2 Not Detected (Not Detect); Parainfluenza Virus 3 Not Detected (Not Detect); Parainfluenza Virus 4 Not Detected (Not Detect); Respiratory Syncytial Virus Not Detected (Not Detect); SARS-CoV-2 Not Detected (Not Detect)
[2020-07-24] MEDS: Piperacillin/Tazobactam 3.375 GM in 0.9 % Sodium Chloride Mini Bag 100 ML IVPB SCH (16:34)
[2020-07-24] MEDS ORDERED: Acetaminophen 325 MG TABLET PO ONE (20:38)
[2020-07-24] MEDS ORDERED: Perflutren Lipid Microsphere 1.3 ML in 0.9 % Sodium Chloride 8.7 ML IVP PRN (21:14)
[2020-07-25] MEDS: Piperacillin/Tazobactam 3.375 GM in 0.9 % Sodium Chloride Mini Bag 100 ML IVPB SCH ×3 (00:53→17:23)
[2020-07-25] MEDS: 0.9 % Sodium Chloride 1,000 ML IVC SCH (03:57)
[2020-07-25] MEDS: *HR* Enoxaparin 40 MG/0.4 ML SYRINGE SQ SCH (05:39)
[2020-07-25 07:50] LABS: Basophils % 0.3 %; Eosinophils # 0.1 K/mcL (0.0-0.6); Eosinophils % 0.3 %; Hematocrit 42.1 % (37.5-50.1); Hemoglobin 13.8 g/dL (12.9-16.9); Immature Granulocytes % 0.4 % (0-4); Lymphocytes # 1.6 K/mcL (0.6-4.6); Lymphocytes % 10.1 %; Mean Corpuscular HGB Conc 32.8 g/dL (31.6-35.5); Mean Corpuscular Hemoglobin 30.5 pg (28.0-33.3); Mean Corpuscular Volume 93.1 fL (83.0-100.0); Mean Platelet Volume 9.5 fL (9.4-12.4); Monocytes # 1.3 K/mcL (0.0-1.3); Monocytes % 8.2 %; Neutrophils # 12.6 K/mcL (1.6-8.9); Platelet Count 206 K/mcL (140-400); Red Blood Count 4.52 M/mcL (4.19-5.50); Red Cell Distribution Width 13.3 % (11.5-14.5); Segmented Neutrophils % 80.7 %; White Blood Count 15.6 K/mcL (4.3-11.1)
[2020-07-25 08:07] LABS: Alanine Aminotransferase 14 Units/L (7-52); Albumin 3.8 g/dL (3.5-5.7); Albumin/Globulin Ratio 1.2 (1.1-2.2); Alkaline Phosphatase 55 Units/L (34-104); Aspartate Amino Transferase 14 Units/L (13-39); BUN/Creatinine Ratio 17 (6-26); Bilirubin,Total 1.5 mg/dL (0.3-1.0); Blood Urea Nitrogen 15 mg/dL (6-20); Calcium 8.7 mg/dL (8.6-10.3); Carbon Dioxide 22 mEq/L (23-29); Chloride 103 mEq/L (98-107); Globulin 3.1 g/dL (2.4-3.5); Glucose 143 mg/dL (70-105); Osmolality,Calculated 279 (280-300); Potassium 3.9 mEq/L (3.5-5.1); Sodium 133 mEq/L (136-145); Total Protein 6.9 g/dL (6.4-8.9); eGFR For African Americans > 60 (> 60); eGFR For Non-African Americans > 60 (> 60)
[2020-07-25] MEDS ORDERED: Nitroglycerin 0.4 MG TAB.SUBL SL PRN (11:32)
[2020-07-25] MEDS ORDERED: Patient Taking Own Medication 1 EACH PO SCH (21:00)
[2020-07-26] MEDS: Piperacillin/Tazobactam 3.375 GM in 0.9 % Sodium Chloride Mini Bag 100 ML IVPB SCH ×3 (01:05→17:57)
[2020-07-26] MEDS: *HR* Enoxaparin 40 MG/0.4 ML SYRINGE SQ SCH (04:39)
[2020-07-26] MEDS ORDERED: Regadenoson 0.4 MG/5 ML SYRINGE IVP ONE (06:31)
[2020-07-26 07:04] LABS: Basophils # 0.1 K/mcL (0.0-0.2); Basophils % 0.5 %; Eosinophils # 0.6 K/mcL (0.0-0.6); Eosinophils % 4.9 %; Hematocrit 38.4 % (37.5-50.1); Immature Granulocytes % 0.3 % (0-4); Lymphocytes # 1.6 K/mcL (0.6-4.6); Lymphocytes % 14.3 %; Mean Corpuscular HGB Conc 33.9 g/dL (31.6-35.5); Mean Corpuscular Hemoglobin 31.6 pg (28.0-33.3); Mean Corpuscular Volume 93.4 fL (83.0-100.0); Mean Platelet Volume 9.4 fL (9.4-12.4); Monocytes # 1.1 K/mcL (0.0-1.3); Monocytes % 9.2 %; Neutrophils # 8.1 K/mcL (1.6-8.9); Platelet Count 187 K/mcL (140-400); Red Blood Count 4.11 M/mcL (4.19-5.50); Red Cell Distribution Width 13.2 % (11.5-14.5); Segmented Neutrophils % 70.8 %; White Blood Count 11.5 K/mcL (4.3-11.1)
[2020-07-26 07:20] LABS: BUN/Creatinine Ratio 21 (6-26); Blood Urea Nitrogen 19 mg/dL (6-20); Calcium 8.5 mg/dL (8.6-10.3); Carbon Dioxide 25 mEq/L (23-29); Chloride 103 mEq/L (98-107); Glucose 125 mg/dL (70-105); Osmolality,Calculated 284 (280-300); Potassium 3.8 mEq/L (3.5-5.1); Sodium 135 mEq/L (136-145); eGFR For African Americans > 60 (> 60); eGFR For Non-African Americans > 60 (> 60)
[2020-07-26] MEDS: Metoprolol XL (24 HR) Succ 25 MG TAB.ER.24H PO SCH (08:20)
[2020-07-26] MEDS: Aspirin 81 MG TAB.CHEW PO SCH (08:20)
[2020-07-26] MEDS: lisinopriL 5 MG TABLET PO SCH (08:21)
[2020-07-26] MEDS: 0.9 % Sodium Chloride 1,000 ML IVC SCH (20:38)
[2020-07-27] MEDS: Piperacillin/Tazobactam 3.375 GM in 0.9 % Sodium Chloride Mini Bag 100 ML IVPB SCH ×3 (00:55→17:55)
[2020-07-27] MEDS: *HR* Enoxaparin 40 MG/0.4 ML SYRINGE SQ SCH (04:58)
[2020-07-27] MEDS ORDERED: Ondansetron 4 MG/2 ML VIAL ONE (07:15)
[2020-07-27] MEDS ORDERED: *HR* Rocuronium Bromide 50 MG/5 ML VIAL ONE (07:15)
[2020-07-27] MEDS ORDERED: *HR* Succinylcholine 200 MG/10 ML VIAL IVP ONE (07:15)
[2020-07-27] MEDS ORDERED: Lidocaine -MPF 4% 5 ML AMPUL ONE (07:15)
[2020-07-27] MEDS ORDERED: Lidocaine -MPF 2% 2 ML VIAL ONE (07:15)
[2020-07-27] MEDS ORDERED: Dexamethasone 4 MG/ML VIAL ONE (07:15)
[2020-07-27] MEDS ORDERED: *HR* Midazolam HCl 2 MG/2 ML VIAL ONE (07:16)
[2020-07-27] MEDS ORDERED: *HR* FentaNYL (PF) 100 MCG/2 ML VIAL ONE (07:16)
[2020-07-27] MEDS: Metoprolol XL (24 HR) Succ 25 MG TAB.ER.24H PO SCH (07:16)
[2020-07-27] MEDS ORDERED: *HR* Propofol 200 MG/20 ML VIAL IVP ONE (07:16)
[2020-07-27] MEDS ORDERED: *HR* Meperidine 25 MG/ML SYRINGE IVP PRN (07:24)
[2020-07-27] MEDS ORDERED: Promethazine 6.25 MG in Water for inj. (sterile) 20 ML IVPB PRN (07:24)
[2020-07-27] MEDS ORDERED: Ondansetron 4 MG/2 ML VIAL IVP PRN ×2 (07:24→10:57)
[2020-07-27] MEDS ORDERED: *HR* HYDROmorphone PF 0.5 MG/0.5 ML SYRINGE IVP PRN (07:24)
[2020-07-27] MEDS ORDERED: Heparin 1,000 UNITS/500 mL 500 ML ONE (07:26)
[2020-07-27 07:30] LABS: Basophils % 0.4 %; Eosinophils # 0.4 K/mcL (0.0-0.6); Eosinophils % 3.4 %; Hematocrit 39.3 % (37.5-50.1); Hemoglobin 13.3 g/dL (12.9-16.9); Immature Granulocytes % 0.2 % (0-4); Lymphocytes # 1.2 K/mcL (0.6-4.6); Lymphocytes % 11.5 %; Mean Corpuscular HGB Conc 33.8 g/dL (31.6-35.5); Mean Corpuscular Hemoglobin 31.4 pg (28.0-33.3); Mean Corpuscular Volume 92.7 fL (83.0-100.0); Mean Platelet Volume 9.7 fL (9.4-12.4); Monocytes % 9.3 %; Platelet Count 205 K/mcL (140-400); Red Blood Count 4.24 M/mcL (4.19-5.50); Red Cell Distribution Width 12.8 % (11.5-14.5); Segmented Neutrophils % 75.2 %; White Blood Count 10.7 K/mcL (4.3-11.1)
[2020-07-27] MEDS ORDERED: *HR* Phenylephrine 10 MG/ML VIAL ONE (07:32)
[2020-07-27] MEDS ORDERED: *HR* Etomidate 40 MG/20 ML VIAL IVP ONE (07:41)
[2020-07-27] MEDS ORDERED: *HR* Vasopressin 20 UNIT/ML VIAL ONE (07:41)
[2020-07-27 07:49] LABS: BUN/Creatinine Ratio 20 (6-26); Blood Urea Nitrogen 17 mg/dL (6-20); Calcium 8.9 mg/dL (8.6-10.3); Carbon Dioxide 23 mEq/L (23-29); Chloride 101 mEq/L (98-107); Glucose 121 mg/dL (70-105); Magnesium 1.8 mg/dL (1.6-2.6); Osmolality,Calculated 281 (280-300); Potassium 3.5 mEq/L (3.5-5.1); Sodium 134 mEq/L (136-145); eGFR For African Americans > 60 (> 60); eGFR For Non-African Americans > 60 (> 60)
[2020-07-27] MEDS ORDERED: *HR* Metoprolol 5 MG/5 ML VIAL IVP ONE (09:38)
[2020-07-27] MEDS ORDERED: *HR* HYDROMORPHONE 2 MG/ML VIAL ONE (09:51)
[2020-07-27] MEDS ORDERED: Naloxone 0.4 MG/ML INJ IVP PRN (10:57)
[2020-07-27] MEDS ORDERED: Nitroglycerin 0.4 MG TAB.SUBL SL PRN (10:57)
[2020-07-27] MEDS ORDERED: Perflutren Lipid Microsphere 1.3 ML in 0.9 % Sodium Chloride 8.7 ML IVP PRN (10:57)
[2020-07-27] MEDS: Aspirin 81 MG TAB.CHEW PO SCH (11:22)
[2020-07-27] MEDS: lisinopriL 5 MG TABLET PO SCH (11:22)
[2020-07-28] MEDS: Piperacillin/Tazobactam 3.375 GM in 0.9 % Sodium Chloride Mini Bag 100 ML IVPB SCH ×2 (00:36→08:43)
[2020-07-28 01:18] LABS: Basophils % 0.1 %; Hematocrit 37.7 % (37.5-50.1); Hemoglobin 12.7 g/dL (12.9-16.9); Immature Granulocytes % 0.4 % (0-4); Lymphocytes # 1.1 K/mcL (0.6-4.6); Lymphocytes % 8.3 %; Mean Corpuscular HGB Conc 33.7 g/dL (31.6-35.5); Mean Corpuscular Hemoglobin 31.4 pg (28.0-33.3); Mean Corpuscular Volume 93.1 fL (83.0-100.0); Mean Platelet Volume 9.2 fL (9.4-12.4); Monocytes % 7.7 %; Neutrophils # 11.2 K/mcL (1.6-8.9); Platelet Count 234 K/mcL (140-400); Red Blood Count 4.05 M/mcL (4.19-5.50); Red Cell Distribution Width 12.6 % (11.5-14.5); Segmented Neutrophils % 83.5 %; White Blood Count 13.4 K/mcL (4.3-11.1)
[2020-07-28 01:39] LABS: BUN/Creatinine Ratio 21 (6-26); Blood Urea Nitrogen 21 mg/dL (6-20); Carbon Dioxide 24 mEq/L (23-29); Chloride 101 mEq/L (98-107); Glucose 197 mg/dL (70-105); Osmolality,Calculated 286 (280-300); Potassium 4.4 mEq/L (3.5-5.1); Sodium 134 mEq/L (136-145); eGFR For African Americans > 60 (> 60); eGFR For Non-African Americans > 60 (> 60)
[2020-07-28] MEDS ORDERED: *HR* Enoxaparin 40 MG/0.4 ML SYRINGE SQ SCH (06:00)
[2020-07-28] MEDS ORDERED: Metoprolol XL (24 HR) Succ 25 MG TAB.ER.24H PO SCH (09:00)
[2020-07-28] MEDS ORDERED: Aspirin 81 MG TAB.CHEW PO SCH (09:00)
[2020-07-28] MEDS ORDERED: lisinopriL 5 MG TABLET PO SCH (09:00)
[2020-07-28 11:25] VITALS: BP 108/63
[2020-07-28] MEDS ORDERED: FLU Vac QV 20-21 (6Month+)/PF 0.5 ML SYRINGE IM ONE (13:41)
== END 2020-07-28 14:30 | disposition home or self-care (01) | DRG 418 ==
LOC: 3ANU 07:21 → EMEROOARM 07:21 → SUATTDRO 11:46 → 3ANU 15:11
PROVIDERS: ADMIT Pharmacist; ATTEND Pharmacist

== ENCOUNTER 2020-11-15 03:57 | Observation (INO) ==
[2020-11-15] MEDS ORDERED: *HR* FentaNYL (PF) 100 MCG/2 ML VIAL IVP ONE ×2 (04:19→06:02)
[2020-11-15] MEDS ORDERED: Ondansetron 4 MG/2 ML VIAL IVP ONE (04:19)
[2020-11-15 04:30] LABS: Bilirubin,Urine Negative (Negative); Blood,Urine Moderate (Negative); Calcium Oxalate Crystals,Urine Present; Clarity,Urine Clear (Clear); Color,Urine Yellow (Yellow); Glucose,Urine (UA) 200 mg/dL (Normal); Ketones,Urine 20 mg/dL (Negative); Leukocyte Esterase,Urine Negative (Negative); Mucus,Urine Few per lpf (None-Few); Nitrite,Urine Negative (Negative); PH,Urine 5.5 pH Units (5.0-8.0); Protein,Urine 200 mg/dL (Neg-Trace); RBC,Urine 15-30 per hpf (0-3); Specific Gravity,Urine > 1.030 (1.010-1.025); Squamous Epithelial Cell,Urine Few per hpf (None-Few); WBC,Urine 0-3 per hpf (0-3)
[2020-11-15 04:33] LABS: Basophils % 0.2 %; Eosinophils % 0.1 %; Hematocrit 46.1 % (37.5-50.1); Hemoglobin 15.5 g/dL (12.9-16.9); Immature Granulocytes % 0.3 % (0-4); Lymphocytes % 6.9 %; Mean Corpuscular HGB Conc 33.6 g/dL (31.6-35.5); Mean Corpuscular Hemoglobin 30.5 pg (28.0-33.3); Mean Corpuscular Volume 90.7 fL (83.0-100.0); Mean Platelet Volume 9.4 fL (9.4-12.4); Monocytes # 0.6 K/mcL (0.0-1.3); Monocytes % 4.3 %; Neutrophils # 12.7 K/mcL (1.6-8.9); Platelet Count 242 K/mcL (140-400); Red Blood Count 5.08 M/mcL (4.19-5.50); Red Cell Distribution Width 13.1 % (11.5-14.5); Segmented Neutrophils % 88.2 %; White Blood Count 14.4 K/mcL (4.3-11.1)
[2020-11-15 04:52] LABS: Alanine Aminotransferase 22 Units/L (7-52); Albumin 4.6 g/dL (3.5-5.7); Albumin/Globulin Ratio 1.4 (1.1-2.2); Alkaline Phosphatase 73 Units/L (34-104); Aspartate Amino Transferase 18 Units/L (13-39); BUN/Creatinine Ratio 18 (6-26); Bilirubin,Total 0.8 mg/dL (0.3-1.0); Blood Urea Nitrogen 24 mg/dL (8-23); Calcium 9.9 mg/dL (8.6-10.3); Carbon Dioxide 24 mEq/L (23-29); Chloride 100 mEq/L (98-107); Globulin 3.4 g/dL (2.4-3.5); Glucose 229 mg/dL (70-105); Osmolality,Calculated 291 (280-300); Potassium 4.1 mEq/L (3.5-5.1); Sodium 135 mEq/L (136-145); eGFR For African Americans > 60 (> 60); eGFR For Non-African Americans 54 (> 60)
[2020-11-15] MEDS ORDERED: 0.9 % Sodium Chloride 1,000 ML IVC ONE (06:19)
[2020-11-15] MEDS ORDERED: Naloxone 0.4 MG/ML INJ IVP PRN ×2 (07:17→13:04)
[2020-11-15] MEDS ORDERED: Morphine Sulfate 2 MG/ML SYRINGE IVP ONE (07:39)
[2020-11-15] MEDS ORDERED: Metoprolol XL (24 HR) Succ 25 MG TAB.ER.24H PO SCH (09:00)
[2020-11-15] MEDS ORDERED: *HR* Propofol 200 MG/20 ML VIAL IVP ONE (09:18)
[2020-11-15] MEDS ORDERED: Ondansetron 4 MG/2 ML VIAL ONE (09:19)
[2020-11-15] MEDS ORDERED: Lidocaine -MPF 2% 2 ML VIAL ONE (09:19)
[2020-11-15] MEDS ORDERED: *HR* FentaNYL (PF) 100 MCG/2 ML VIAL ONE (09:19)
[2020-11-15] MEDS ORDERED: Ringers Solution, Lactated 1,000 ML ONE (11:19)
[2020-11-15] MEDS ORDERED: ceFAZolin 2,000 MG in Water for inj. (sterile) 20 ML IVP ONE (11:23)
[2020-11-15] MEDS ORDERED: Isovue-300 50ML VIAL ONE (11:47)
[2020-11-15] MEDS ORDERED: *HR* Vasopressin 20 UNIT/ML VIAL ONE (11:48)
[2020-11-15] MEDS ORDERED: Acetaminophen IV 1,000 MG/100 ML BAG IVPB ONE (11:48)
[2020-11-15] MEDS ORDERED: *HR* OxyCODONE/APAP 5/325 TABLET PO PRN (13:04)
[2020-11-15] MEDS ORDERED: Hyoscyamine SL 0.125 MG TAB.SUBL SL PRN (13:04)
[2020-11-15] MEDS: TICAGRELOR 60 MG PO SCH (21:14)
[2020-11-16 07:02] LABS: Basophils % 0.1 %; Hematocrit 40.4 % (37.5-50.1); Immature Granulocytes % 0.5 % (0-4); Lymphocytes # 1.8 K/mcL (0.6-4.6); Lymphocytes % 12.9 %; Mean Corpuscular HGB Conc 33.4 g/dL (31.6-35.5); Mean Corpuscular Hemoglobin 30.3 pg (28.0-33.3); Mean Corpuscular Volume 90.8 fL (83.0-100.0); Mean Platelet Volume 9.3 fL (9.4-12.4); Monocytes # 1.1 K/mcL (0.0-1.3); Monocytes % 7.9 %; Neutrophils # 11.1 K/mcL (1.6-8.9); Platelet Count 216 K/mcL (140-400); Red Blood Count 4.45 M/mcL (4.19-5.50); Red Cell Distribution Width 13.6 % (11.5-14.5); Segmented Neutrophils % 78.6 %; White Blood Count 14.1 K/mcL (4.3-11.1)
[2020-11-16 07:03] LABS: Hemoglobin 13.5 g/dL (12.9-16.9)
[2020-11-16 07:24] LABS: BUN/Creatinine Ratio 22 (6-26); Blood Urea Nitrogen 21 mg/dL (8-23); Calcium 9.1 mg/dL (8.6-10.3); Carbon Dioxide 24 mEq/L (23-29); Chloride 103 mEq/L (98-107); Glucose 158 mg/dL (70-105); Osmolality,Calculated 284 (280-300); Potassium 4.1 mEq/L (3.5-5.1); Sodium 134 mEq/L (136-145); eGFR For African Americans > 60 (> 60); eGFR For Non-African Americans > 60 (> 60)
[2020-11-16 07:41] LABS: Estimated Average Glucose 157 mg/dl; Hemoglobin A1C 7.1 %
[2020-11-16] MEDS: TICAGRELOR 60 MG PO SCH (08:47)
[2020-11-16] MEDS ORDERED: Metoprolol XL (24 HR) Succ 25 MG TAB.ER.24H PO SCH (09:00)
[2020-11-16] MEDS ORDERED: Spironolactone 25 MG TABLET PO SCH (09:00)
[2020-11-16 13:06] VITALS: BP 118/62
== END 2020-11-16 14:00 | disposition home or self-care (01) ==
LOC: 3ANU 03:57 → EMEROOARM 03:57 → SUATTDRO 07:10 → 3ANU 08:01
PROVIDERS: ADMIT Student in an Organized Health Care Education/Training Program; ATTEND Family Medicine